=== PATIENT | female | born 1980 | race Caucasian/White ===

== ENCOUNTER → 2018-07-05 | Outpatient (CLI) | payer BC ==
--- NOTE | 2018-07-05 17:21 | US ---
EXAMINATION TYPE: US transvaginal DATE OF EXAM: 07/05/2018 COMPARISON: NONE CLINICAL HISTORY: R10.11 RUQ Abd Pain, L68.0 Hirsutism. Hirsutism TECHNIQUE: Transvaginal (TV). Date of LMP: 06/25/18 EXAM MEASUREMENTS: Uterus: 7.2 x 4.2 x 5.5 cm Endometrial Stripe: 1.1 cm Right Ovary: 3.9 x 1.7 x 1.6 cm Left Ovary: 2.4 x 1.5 x 1.8 cm 1. Uterus: Retroverted 2. Endometrium: appears wnl 3. Right Ovary: dominant follicle = 1.7 x 1.4 x 1.2cm 4. Left Ovary: follicles noted 5. Bilateral Adnexa: appears wnl 6. Posterior cul-de-sac: free fluid noted IMPRESSION: Normal uterus and endometrium. No adnexal mass. Simple right ovarian cyst. Tiny amount of free fluid could be physiologic.
== END ==
LOC: RADUSWWP 16:08
PROVIDERS: ATTEND Family Medicine
DX: N83.201 Unspecified ovarian cyst, right side (principal)
CPT/HCPCS: 76830

== ENCOUNTER → 2021-05-06 | Outpatient (CLI) | payer BC ==
--- NOTE | 2021-05-06 16:38 | XR ---
Right toe HISTORY: First digit pain 3 views the first digit There is joint space loss, hypertrophic change, marginal spurring, subchondral eburnation and possibl e geode formation at the first metatarsal phalangeal joint. Overall bone mineralization and alignment maintained. No fracture or dislocation. IMPRESSION: Osteoarthritis.
== END | disposition home or self-care (01) ==
LOC: RADXRMAIN 16:09
PROVIDERS: ATTEND Family Medicine
DX: M19.071 Primary osteoarthritis, right ankle and foot (principal)

== ENCOUNTER → 2023-04-15 | Outpatient (CLI) | payer BC ==
--- NOTE | 2023-04-18 12:58 | MM ---
Reason for Exam: Screening (asymptomatic). Last mammogram was performed 5 year(s) and 2 month(s) ago. Patient History: Menarche at age 12. Patient has no children. Premenopausal. Maternal grandmother had breast cancer, age 65. Maternal grandmother had breast cancer, age 70. Maternal aunt had breast cancer at or over age 50. Mother had breast cancer, age 50. Last menstrual period: 04/08/2023 Risk Values: Eve 5 year model risk: 1.3%. NCI Lifetime model risk: 18.5%. Prior Study Comparison: 02/02/2018 Bilateral Screening Mammogram, [facility]. Tissue Density: There are scattered fibroglandular densities. Findings: Analyzed By CAD. Again appears symmetrical and stable. There are a few benign-appearing punctate scattered calcifications bilaterally. No suspicious groups of microcalcifications, spiculated or lobular masses, architectural distortion or other secondary signs of malignancy are mammographically apparent. Overall Assessment: Benign, BI-RAD 2 Management: Screening Mammogram of both breasts in 1 year. A negative mammogram report should not preclude additional follow up of suspicious palpable abnormalities. Patient should continue monthly self breast exam. A clinical breast exam by your physician is recommended on an annual basis and results should be correlated with mammographic findings. Electronically signed and approved by: Gideon Jason D.O. Radiologis
== END | disposition home or self-care (01) ==
LOC: RADMAMWWP 08:19
PROVIDERS: ATTEND Family Medicine
DX: Z12.31 Encounter for screening mammogram for malignant neoplasm of breast (principal); Z80.3 Family history of malignant neoplasm of breast
CPT/HCPCS: 77063; 77067